=== PATIENT | female | born 1975 | race Caucasian/White ===

== ENCOUNTER 2019-10-27 16:31 | Emergency (ER) | payer BC ==
[2019-10-27 17:03] VITALS: BP 124/85
--- NOTE | 2019-10-27 18:19 | UC ---
General HPI - HPI Summary HPI Summary: 44-year-old female presenting with for right-sided rib pain that radiates beneath the right breast to sternum. Patient states this began at 11 AM this morning and comes in waves. Patient states that deep breaths and raising her right arm increases pain. Denies current pain. Denies recent trauma or injury. Denies rash. Denies recent illness. Denies coughing. Denies fever and chills. Denies shortness of breath and wheezing. Denies difficulty breathing. States she applied heating pad and took tylenol without much relief. - History of Current Complaint Chief Complaint: UCUpperExtremity Stated Complaint: RIGHT RIB PAIN Hx Obtained From: Patient Hx Last Menstrual Period: 09/28/19 Pain Intensity: 7 - Allergy/Home Medications Allergies/Adverse Reactions: Allergies Allergy/AdvReac Type Severity Reaction Status Date / Time No Known Allergies Allergy Verified 10/27/19 16:58 PMH/Surg Hx/FS Hx/Imm Hx Previously Healthy: Yes - Surgical History Surgical History: None - Family History Known Family History: Positive: Non-Contributory - Social History Alcohol Use: Rare Substance Use Type: None Smoking Status (MU): Never Smoked Tobacco Review of Systems All Other Systems Reviewed And Are Negative: Yes Constitutional: Positive: Negative Skin: Positive: Negative. Negative: Rash, Bruising Respiratory: Positive: Negative. Negative: Shortness Of Breath, Cough Cardiovascular: Positive: Negative. Negative: Palpitations, Chest Pain Gastrointestinal: Positive: Negative. Negative: Vomiting, Nausea Musculoskeletal: Positive: Arthralgia - R rib/chest pain worse with deep breaths and R arm movement. Negative: Decreased ROM, Edema Neurological: Negative: Paresthesia, Numbness Physical Exam Triage Information Reviewed: Yes Appearance: Well-Appearing, No Pain Distress, Well-Nourished Vital Signs: Initial Vital Signs Temp 97.6 F 10/27/19 16:59 Pulse 69 10/27/19 16:59 Resp 16 10/27/19 16:59 BP 124/85 10/27/19 16:59 Pulse Ox 100 10/27/19 16:59 Vital Signs Reviewed: Yes Eyes: Positive: Conjunctiva Clear ENT: Positive: Hearing grossly normal Neck: Positive: Supple Respiratory Exam: Normal Respiratory: Positive: Lungs clear, Normal breath sounds, No respiratory distress, No accessory muscle use. Negative: Crackles, Rhonchi, Stridor, Wheezing, Plerual rub Cardiovascular Exam: Normal Cardiovascular: Positive: RRR, No Murmur, Pulses Normal Musculoskeletal: Positive: Strength Intact, ROM Intact, Other: - minimal tenderness to palpation of ribs beneath breast and costosternal joints. increased pain with flexion of R arm past 90 degress Neurological Exam: Other - sensation grossly intact Neurological: Positive: Alert Psychological: Positive: Age Appropriate Behavior Skin Exam: Normal - no erythema or ecchymosis Course/Dx - Course Course Of Treatment: Patient lung sounds clear and skin exam normal. Discussed muscle strain vs costochondritis. Instructed patient to treat symptomatically, including use of ibuprofen, prednisone, and heating pad. Patient states taken steroid in past without issue. Instructed patient to follow up with pcp if symptoms persist and to go to ED if she experiences new or worsening symptoms. - Diagnoses Provider Diagnosis: Right-sided chest wall pain Discharge ED - Sign-Out/Discharge Documenting (check all that apply): Patient Departure All imaging exams completed and their final reports reviewed: No Studies - Discharge Plan Condition: Stable Disposition: HOME Prescriptions: predniSONE [Prednisone 20 MG TAB] 20 mg PO DAILY #5 tablet Patient Education Materials: Prednisone (By mouth), Muscle Strain (ED) Forms: *Work Release Referrals: Josette Amato PA [Primary Care Provider] - If Needed Additional Instructions: Continue to apply heat to the area for pain relief. You may take ibuprofen and/or tylenol as directed. Take the prednisone as prescribed. Rest and refrain from any activity that worsens your pain. Follow up with your primary care provider if symptoms do no resolve within 5-7 days. Go to the emergency room with any new or worsening symptoms. - Billing Disposition and Condition Condition: STABLE Disposition: Home
== END 2019-10-27 18:20 | disposition home or self-care (01) ==
LOC: UCCORT 16:31
DX: R07.89 Other chest pain (principal)
CPT/HCPCS: 99212; G0463